=== PATIENT | male | born 1955 | race Caucasian/White ===

== ENCOUNTER 2018-01-06 22:40 | Emergency (ER) | payer OTHER ==
[~2018-01-06] VITALS: Ht 180.3 cm; Wt 83.9 kg
[~2018-01-06 22:40] MED LIST: DOCU-416 PO; DOXA8TAB62 PO; HYDR-317; METO50TA19 PO; OXYB10TA21 PO; PHEN200T32 PO
--- NOTE | 2018-01-06 23:08 | ER Report ---
History and Physical Time Seen By MD: 23:06 Hx. of Stated Complaint: PATIENT STATES HIS BLOOD PRESSURE IS REALLY ELEVATED 220/120 AT HOME, TOOK MANUAL BP. PATIENT ALSO STATES HE HAS HAD AN IRREGULAR HEART BEAT, AND HAD A HEADACHE ON THE POSTERIOR RIGHT SIDE, BUT THAT WENT AWAY. PATIENT TOOK 10MG OF PROPRANOLOL PER HIS DOCTORS ORDER AT 2150. HPI/ROS CHIEF COMPLAINT: elevated blood pressure and funky heartbeats HISTORY OF PRESENT ILLNESS: This is a 62 year old male. He has a long history of blood pressure problems. Multiple medications with limited effectiveness to control pressures. He had a headache tonight and blood pressure was running high. Did take a Propranolol 10mg tablet at home and headache is gone, but blood pressure is still high and pulse racing. He did have an episode of irregular heart beat in the past and fast beats. Occasionally gets very strong skipped beats. 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 He has no chest pain at this time. He is not short of breath. No nausea or vomiting. REVIEW OF SYSTEMS: Constitutional: No fever or chills. Eyes: No vision changes. ENT: No sore throat. No congestion. Cardiovascular: As above. Respiratory: As above. Gastrointestinal: No abdominal pain. Genitourinary: No problems with urination. Musculoskeletal: No musculoskeletal pain. Skin: No rashes or lesions. Neurological: As above. Allergies: Coded Allergies: clavulanic acid (Unverified Adverse Reaction, Severe, GI DISTRESS, SEVERE N/V, 01/06/18) nifedipine (Unverified Adverse Reaction, Intermediate, IRREGULAR HEARTBEAT , HEADACHE, 01/06/18) Home Meds Active Scripts Diltiazem Hcl (CARDIZEM CD) 180 Mg Cap.er.24h, 180 MG PO QDAY, #30 CAP.SR.24H 0 Refills Prov:GWENDOLYN JIMENEZ MD 01/07/18 Reported Medications Hydrocodone/Acetaminophen (Lortab 5-325 mg Tablet) 1 Each Tablet, 1-2 Q6H 06/06/14 Oxybutynin Chloride (DITROPAN XL) 10 Mg Tab.er.24, 10 MG PO QDAY, TAB 06/06/14 Phenazopyridine Hcl (PHENAZOPYRIDINE HCL) 200 Mg Tablet, 200 MG PO TID 06/06/14 Docusate Sodium (COLACE) 100 Mg Capsule, 100 MG PO BID, CAPSULE 06/06/14 Doxazosin Mesylate (CARDURA) 8 Mg Tablet, 8 MG PO QDAY 05/31/14 Metoprolol Succinate (METOPROLOL SUCCINATE) 50 Mg Tab.er.24h, 0.5 TAB PO TID TAKE ONE TABLET BY MOUTH EVERY DAY 05/31/14 Reviewed Nurses Notes: Yes Constitutional Vital Sign - Last 24 Hours 01/06/18 01/06/18 01/06/18 01/06/18 22:47 22:48 22:55 23:10 Temp 97.9 Pulse 104 91 96 Resp 20 B/P (MAP) 198/145 (162) 198/145 Pulse Ox 91 93 91 O2 Delivery Room Air 01/06/18 01/06/18 01/06/18 01/06/18 23:25 23:36 23:40 23:45 Pulse 88 84 Resp 21 B/P (MAP) 163/121 (135) 153/100 (117) Pulse Ox 91 91 01/06/18 01/07/18 01/07/18 01/07/18 23:55 00:08 00:10 00:15 Pulse 68 67 Resp 28 19 B/P (MAP) 158/104 (122) 154/107 (123) Pulse Ox 92 90 01/07/18 01/07/18 01/07/18 01/07/18 00:25 00:30 00:35 00:45 Pulse 65 64 Resp 14 18 B/P (MAP) 161/107 (125) 162/107 (125) Pulse Ox 92 91 01/07/18 00:50 Pulse 66 Resp 11 Pulse Ox 94 Physical Exam General Appearance: The patient is alert. No acute distress. Eyes: Pupils are equal, round. Reactive to light. No pallor, injection or icterus. Extraocular movements are intact. ENT: Mucous membranes are moist. Normal oral mucosa. Posterior oropharynx is normal. Normal tympanic membranes and canals. Neck: Supple and non tender. No lymphadenopathy. Respiratory: Breathing easily and unlabored. Lungs are clear to auscultation. Cardiovascular: Tachycardia with irregularly irregular. No murmurs, gallops or rubs. Normal capillary refill. No edema. Gastrointestinal: Abdomen is soft and non tender. Nondistended. Normal active bowel sounds. Neurological: Alert and oriented x3. Cranial nerves II through XII show no acute deficits on my exam. No focal neurologic deficits in the extremities. Skin: Warm and dry. No rashes. Musculoskeletal: Nontender. Full range of motion. DIFFERENTIAL DIAGNOSIS: After history and physical exam, differential diagnosis was considered for atrial fibrillation with rapid rate. Medical Decision Making Data Points Result Diagram: 01/06/18225401/06/185 Laboratory Hematology Test 01/06/18 22:55 Red Blood Count 5.63 M/uL (4.00-5.60) Mean Corpuscular Volume 88.6 fL (80.0-96.0) Mean Corpuscular Hemoglobin 30.8 pg (26.0-33.0) Mean Corpuscular Hemoglobin Concent 34.8 g/dL (32.0-36.0) Red Cell Distribution Width 13.4 % (11.5-14.5) Mean Platelet Volume 9.6 fL (7.2-11.1) Neutrophils (%) (Auto) 43.6 % (39.4-72.5) Lymphocytes (%) (Auto) 40.4 % (17.6-49.6) Monocytes (%) (Auto) 12.2 % (4.1-12.4) Eosinophils (%) (Auto) 3.0 % (0.4-6.7) Basophils (%) (Auto) 0.8 % (0.3-1.4) Nucleated RBC Relative Count (auto) 0.0 /100WBC Neutrophils # (Auto) 4.1 K/uL (2.0-7.4) Lymphocytes # (Auto) 3.8 K/uL (1.3-3.6) Monocytes # (Auto) 1.1 K/uL (0.3-1.0) Eosinophils # (Auto) 0.3 K/uL (0.0-0.5) Basophils # (Auto) 0.1 K/uL (0.0-0.1) Nucleated RBC Absolute Count (auto) 0.00 K/uL D-Dimer Quantitative (PE/DVT) 0.38 ug/ml (0-0.50) Sodium Level 140 mmol/L (137-145) Potassium Level 3.7 mmol/L (3.5-5.0) Chloride Level 103 mmol/L (98-107) Carbon Dioxide Level 21 mmol/L (22-30) Blood Urea Nitrogen 25 mg/dl (9-21) Creatinine 1.30 mg/dl (0.66-1.25) Glomerular Filtration Rate Calc 55.6 Random Glucose 111 mg/dl (75-110) Calcium Level 10.0 mg/dl (8.4-10.2) Total Bilirubin 0.3 mg/dl (0.2-1.3) Aspartate Amino Transf (AST/SGOT) 34 U/L (0-35) Alanine Aminotransferase (ALT/SGPT) 38 U/L (0-56) Alkaline Phosphatase 115 U/L (0-126) Troponin I 0.021 ng/ml Total Protein 8.5 gm/dl (6.3-8.2) Albumin 4.4 g/dl (3.5-5.0) Chemistry Test 01/06/18 22:55 White Blood Count 9.3 k/uL (4.5-11.0) Red Blood Count 5.63 M/uL (4.00-5.60) Hemoglobin 17.3 g/dL (14.0-18.0) Hematocrit 49.9 % (42.0-52.0) Mean Corpuscular Volume 88.6 fL (80.0-96.0) Mean Corpuscular Hemoglobin 30.8 pg (26.0-33.0) Mean Corpuscular Hemoglobin Concent 34.8 g/dL (32.0-36.0) Red Cell Distribution Width 13.4 % (11.5-14.5) Platelet Count 232 K/uL (150-450) Mean Platelet Volume 9.6 fL (7.2-11.1) Neutrophils (%) (Auto) 43.6 % (39.4-72.5) Lymphocytes (%) (Auto) 40.4 % (17.6-49.6) Monocytes (%) (Auto) 12.2 % (4.1-12.4) Eosinophils (%) (Auto) 3.0 % (0.4-6.7) Basophils (%) (Auto) 0.8 % (0.3-1.4) Nucleated RBC Relative Count (auto) 0.0 /100WBC Neutrophils # (Auto) 4.1 K/uL (2.0-7.4) Lymphocytes # (Auto) 3.8 K/uL (1.3-3.6) Monocytes # (Auto) 1.1 K/uL (0.3-1.0) Eosinophils # (Auto) 0.3 K/uL (0.0-0.5) Basophils # (Auto) 0.1 K/uL (0.0-0.1) Nucleated RBC Absolute Count (auto) 0.00 K/uL D-Dimer Quantitative (PE/DVT) 0.38 ug/ml (0-0.50) Glomerular Filtration Rate Calc 55.6 Calcium Level 10.0 mg/dl (8.4-10.2) Total Bilirubin 0.3 mg/dl (0.2-1.3) Aspartate Amino Transf (AST/SGOT) 34 U/L (0-35) Alanine Aminotransferase (ALT/SGPT) 38 U/L (0-56) Alkaline Phosphatase 115 U/L (0-126) Troponin I 0.021 ng/ml Total Protein 8.5 gm/dl (6.3-8.2) Albumin 4.4 g/dl (3.5-5.0) Coagulation Test 01/06/18 22:55 D-Dimer Quantitative (PE/DVT) 0.38 ug/ml EKG/Imaging EKG Interpretation 12 lead EKG: At 22:55 hours Rhythm: Atrial fibrillation with rapid ventricular response, rate 118 [place]: normal QRS: Criteria for LVH ST segments: Nonspecific ST and T-wave changes but no signs of ischemia 12 lead EKG: At 23:49 hours after receiving IV diltiazem Rhythm: normal sinus rhythm, rate 63 [place]: normal QRS: normal ST segments: Nonspecific T-wave abnormality Imaging CHEST PA AND LATERAL 01/06/2018 11:31 PM. INDICATION: Irregular heartbeat. COMPARISON: 11/30/2012. FINDINGS: Lungs are well-expanded. The lungs are clear. No pneumothorax or pleural effusion. Pulmonary vasculature is unremarkable. Heart size is normal. IMPRESSION: No acute abnormality or significant change. Report Dictated By: Ravindra Fabian MD at 01/06/2018 11:41 PM ED Course/Re-evaluation Clinical Indication for ER IV: Hydration, IV Access ED Course Patient was given 20 mg of IV diltiazem, slow IV push, with immediate conversion to sinus rhythm. He remained in a sinus rhythm. We gave him Cardizem CD 180 mg oral dose. We'll have him start taking this once a day. He will follow up with primary care and with cardiology. We did discuss anticoagulation and I did recommend to him based on increased stroke risk that starting blood thinner would be the right thing to do however he would prefer not to do this at this time. He is agreeable to starting the aspirin daily, he expressed understanding of the increased risks of stroke based on a conversation regarding what atrial fibrillation is unwise increases stroke risk. Decision to Disposition Date: Jan 07, 2018 Decision to Disposition Time: 00:49 Depart Departure Latest Vital Signs Vital Signs Date Time Temp Pulse Resp B/P (MAP) Pulse Ox O2 Delivery O2 Flow Rate FiO2 01/07/18 00:50 66 11 94 01/07/18 00:45 162/107 (125) 01/06/18 22:48 97.9 Room Air Impression: Primary Impression: Atrial fibrillation Condition: Improved Disposition: HOME OR SELF-CARE Referrals: HEATHER FISHER DO (PCP) New Scripts Diltiazem Hcl (CARDIZEM CD) 180 Mg Cap.er.24h 180 MG PO QDAY, #30 CAP.SR.24H 0 Refills Prov: GWENDOLYN JIMENEZ MD 01/07/18 Patient Instructions: A-fib (Atrial Fibrillation) (ED) Additional Instructions: Start Cardizem CD 180mg capsule daily. No changes to other medications. It would be best to start on a blood thinner to reduce risk of stroke from from atrial fibrillation. As least start an aspirin daily if not starting a blood thinner, but this will not reduce stroke risk as well. Please discuss this with cardiology and with your primary care provider. Problem Qualifiers Primary Impression: Atrial fibrillation Atrial fibrillation type: unspecified Qualified Codes: I48.91 - Unspecified atrial fibrillation GWENDOLYN JIMENEZ MD Jan 06, 2018 23:08
--- NOTE | 2018-01-06 23:11 | EKG ---
FACILITY: [facility] - [place] PATIENT NAME: CLAY CHE : [id number] MR: [id number] V: [id number] EXAM DATE: ORDERING PHYSICIAN: GWENDOLYN JIMENEZ TECHNOLOGIST: CHRISTY Test Reason : ARRYTHMIA Blood Pressure : / mmHG Vent. Rate : 118 BPM Atrial Rate : 141 BPM P-R Int : 000 ms QRS Dur : 080 ms QT Int : 334 ms P-R-T Axes : 000 025 097 degrees QTc Int : 468 ms Atrial flutter with variable AV block Minimal voltage criteria for LVH, may be normal variant Nonspecific ST and T wave abnormality , probably digitalis effect Abnormal ECG When compared with ECG of 01-JUN-2014 09:40, Atrial flutter has replaced Sinus rhythm Vent. rate has increased BY [address] now depressed in Inferior leads ST now depressed in Anterolateral leads Nonspecific T wave abnormality, worse in Lateral leads Confirmed by ORLANDO NUÑEZ ([id number]) on 01/06/2018 11:26:07 PM Referred By: Confirmed By:ORLANDO NUÑEZ
[2018-01-06 23:20] LABS: PLATELET COUNT, AUTOMATED 232 K/uL (150-450)
[2018-01-06] MEDS ORDERED: DILTIAZEM 5 MG/ML 5ML IVPUSH IVP ONE (23:30)
--- NOTE | 2018-01-06 23:48 | RADIOLOGY IMAGING REPORT ---
FACILITY: [facility] PATIENT NAME: Steven Brito : 1955 MR: [id number] V: [id number] EXAM DATE: ORDERING PHYSICIAN: GWENDOLYN JIMENEZ TECHNOLOGIST: Location: [facility] [place] Patient: Steven Brito : 1955 Visit/Account:[id number] Date of Sevice: 01/06/2018 CHEST PA AND LATERAL 01/06/2018 11:31 PM. INDICATION: Irregular heartbeat. COMPARISON: 11/30/2012. FINDINGS: Lungs are well-expanded. The lungs are clear. No pneumothorax or pleural effusion. Pulmo nary vasculature is unremarkable. Heart size is normal. IMPRESSION: No acute abnormality or significant change. Report Dictated By: Ravindra Fabian MD at 01/06/2018 11:41 PM Report E-Signed By: Ravindra Fabian MD at 01/06/2018 11:43 PM WSN:[id number]
[2018-01-07] MEDS ORDERED: DILTIAZEM CD 180 MG CAPCR PO ONE (00:05)
[2018-01-07 00:45] VITALS: BP 162/107
[2018-01-07] MEDS ORDERED: DILT-145 PO (00:51)
--- NOTE | 2018-01-07 01:07 | EKG ---
FACILITY: [facility] - [place] PATIENT NAME: CLAY CHE : [id number] MR: [id number] V: [id number] EXAM DATE: ORDERING PHYSICIAN: GWENDOLYN JIMENEZ TECHNOLOGIST: CHRISTY Test Reason : S/P A FIB Blood Pressure : / mmHG Vent. Rate : 063 BPM Atrial Rate : 063 BPM P-R Int : 178 ms QRS Dur : 084 ms QT Int : 408 ms P-R-T Axes : 021 015 045 degrees QTc Int : 417 ms Normal sinus rhythm Nonspecific T wave abnormality Abnormal ECG When compared with ECG of 06-JAN-2018 22:55, Sinus rhythm has replaced Atrial flutter Vent. rate has decreased BY [address] no longer depressed in Inferior leads ST elevation has replaced ST depression in Anterior leads Confirmed by ORLANDO NUÑEZ ([id number]) on 01/07/2018 6:20:04 AM Referred By: Confirmed By:ORLANDO NUÑEZ
--- NOTE | 2018-01-09 15:46 | Transitional Care Management ---
Assessment Visit Type: Telephone Visit (01/09) TCM Discharge Criteria Transitional Care Comment: 01/09 visited with , D/T Steven was outside. states "Steven has had a KAPOOR for the past couple of days but denies any CP or palpations.: I encouraged her to have him call PCP and get an office YADY. She said she would try to convience him but he was dragging his feet. JESSICA BOWLING Jan 09, 2018 15:46
== END 2018-01-07 01:03 | disposition home or self-care (01) ==
LOC: ER 23:17
DX: I48.91 Unspecified atrial fibrillation (principal)
CPT/HCPCS: 71046; 84443; 84484; 85025; 85379; 93005; 96374; 99284; J3490; 82040; 82247; 82310; 82374; 82435; 82565; 82947; 84075; 84132; 84155; 84295; 84450; 84460; 84520

== ENCOUNTER 2019-05-09 06:30 | Emergency (ER) | payer OTHER ==
[~2019-05-09 06:30] MED LIST changes: -ACET-1966 PO; -AMLO-101 PO; -AMLO-125 PO; -AMLO2.5T75 PO; -ASPI81TA94 PO; -ATOR40TA24 PO; -CEFU500T10 PO; -COLC0.6C3 PO; -GABA-547 PO; -HYDR10TA20 PO; -LEVO50TA86 PO; -METO-253 PO; -NIT4 SL; -WARF5TAB23 PO
[2019-05-09] MEDS ORDERED: WARF5TAB23 PO (06:36)
[2019-05-09] MEDS ORDERED: ASPIRIN 81 MG CHEW ONE (06:37)
[2019-05-09] MEDS ORDERED: STEMI KIT(*) 0 EA ONE (06:38)
--- NOTE | 2019-05-09 06:42 | EKG ---
FACILITY: [facility] PATIENT NAME: CLAY CHE : [id number] MR: [id number] V: [id number] EXAM DATE: ORDERING PHYSICIAN: LANDY ESTEBAN TECHNOLOGIST: KATT Test Reason : ALOC Blood Pressure : / mmHG Vent. Rate : 042 BPM Atrial Rate : 042 BPM P-R Int : 184 ms QRS Dur : 092 ms QT Int : 464 ms P-R-T Axes : 025 032 086 degrees QTc Int : 387 ms Marked sinus bradycardia Left ventricular hypertrophy with repolarization abnormality ST elevation, consider inferolateral injury or acute infarct ACUTE NE Abnormal ECG No previous ECGs available Confirmed by ORLANDO NUÑEZ ([id number]) on 05/09/2019 9:46:02 AM Referred By: CARLITO Confirmed By:ORLANDO NUÑEZ
[2019-05-09] MEDS ORDERED: ASPIRIN 81 MG CHEW PO ONE (06:45)
[2019-05-09] MEDS ORDERED: NS(*) 0.9% 1000 ML BAG 1,000 ML IV ONE (06:50)
[2019-05-09] MEDS ORDERED: TENECTEPLASE 50 MG KIT IVP ONE (06:50)
[2019-05-09] MEDS ORDERED: CLOPIDOGREL BISULFATE 75MG TAB PO ONE (06:50)
[2019-05-09 06:52] LABS: PLATELET COUNT, AUTOMATED 260 K/uL (150-450)
--- NOTE | 2019-05-09 07:01 | ER Report ---
History and Physical Time Seen By MD: 06:28 Hx. of Stated Complaint: WAS EXERCISING AROUND 6A. NOW HAS CHEST PAIN, PALE, SWEATY, ALTERED HPI/ROS CHIEF COMPLAINT: Chest pain HISTORY OF PRESENT ILLNESS: Patient was exercising at 6:00. He developed central chest pain and pressure. He has never had this before. Symptoms continue. He has 3 out of 10 chest pain with radiation to both shoulders. It does not radiate to his back. He is not short of breath. Patient is also lightheaded. He has had no prior heart attack. He is on Coumadin for A. fib and his last INR was 2.0. He has had no bleeding. He denies black stools. He has never been anemic. + fam hx, no known personal acs, no tobacco use REVIEW OF SYSTEMS: Constitutional: No fever, no chills. Eyes: No discharge. ENT: No sore throat. Cardiovascular: above Respiratory: above Gastrointestinal: No abdominal pain, no vomiting. Genitourinary: No hematuria. Musculoskeletal: No back pain. Skin: No rashes. Neurological: lightheaded Remainder of the 14 system rev: Yes Allergies: Coded Allergies: clavulanic acid (Unverified Adverse Reaction, Severe, GI DISTRESS, SEVERE N/V, 05/09/19) nifedipine (Unverified Adverse Reaction, Intermediate, IRREGULAR HEARTBEAT, HEADACHE, 05/09/19) Home Meds Reported Medications Hydralazine Hcl (HYDRALAZINE HCL) 10 Mg Tablet, 10 MG PO QDAY, TAB 05/09/19 Amlodipine Besylate (NORVASC) 5 Mg Tablet, 1 TAB PO QDAY, TAB 05/09/19 Amlodipine Besylate (NORVASC) 2.5 Mg Tablet, 1 TAB PO QDAY, TAB 05/09/19 Warfarin Sodium (WARFARIN SODIUM) 5 Mg Tablet, 5 MG PO QDAY, TAB 05/09/19 Discontinued Reported Medications Hydrocodone/Acetaminophen (Lortab 5-325 mg Tablet) 1 Each Tablet, 1-2 Q6H 06/06/14 Oxybutynin Chloride (DITROPAN XL) 10 Mg Tab.er.24, 10 MG PO QDAY, TAB 06/06/14 Phenazopyridine Hcl (PHENAZOPYRIDINE HCL) 200 Mg Tablet, 200 MG PO TID 06/06/14 Docusate Sodium (COLACE) 100 Mg Capsule, 100 MG PO BID, CAPSULE 06/06/14 Doxazosin Mesylate (CARDURA) 8 Mg Tablet, 8 MG PO QDAY 05/31/14 Metoprolol Succinate (METOPROLOL SUCCINATE) 50 Mg Tab.er.24h, 0.5 TAB PO TID TAKE ONE TABLET BY MOUTH EVERY DAY 05/31/14 Discontinued Scripts Diltiazem Hcl (CARDIZEM CD) 180 Mg Cap.er.24h, 180 MG PO QDAY, #30 CAP.SR.24H 0 Refills Prov:GWENDOLYN JIMENEZ MD 01/07/18 Reviewed Nurses Notes: Yes Old Medical Records Reviewed: Yes Constitutional Vital Sign - Last 24 Hours 05/09/19 05/09/19 05/09/19 05/09/19 06:31 06:33 06:35 06:40 Temp 96.4 Pulse 47 54 Resp 18 23 19 B/P (MAP) 113/66 (82) 113/66 131/83 (99) Pulse Ox 95 94 91 O2 Delivery Room Air 05/09/19 05/09/19 05/09/19 05/09/19 06:42 06:45 06:50 06:52 Pulse ??? 53 Resp 28 19 B/P (MAP) 136/85 (102) 142/64 (90) 137/83 (101) O2 Flow Rate 2.0 05/09/19 05/09/19 05/09/19 05/09/19 06:57 07:00 07:02 07:03 Pulse 52 54 Resp 14 13 B/P (MAP) 148/90 (109) 146/96 (113) 149/98 (115) Pulse Ox 99 99 05/09/19 05/09/19 07:07 07:12 Pulse 60 44 Resp 17 Pulse Ox 100 99 Physical Exam General Appearance: The patient is alert, has no immediate need for airway protection and no signs of toxicity. he appears pale and diaphoretic Eyes: Pupils equal and round no pallor or injection. ENT, Mouth: Mucous membranes are moist. Respiratory: There are no retractions, lungs are clear to auscultation. Cardiovascular: bradycardia Gastrointestinal: Abdomen is soft and non tender, no masses, bowel sounds normal. GI - brown stool. No blood. Neurological: alert, oriented Skin: diaphoretic forehead, cool Musculoskeletal: Neck is supple non tender. Extremities are nontender, nonswollen and have full range of motion. DIFFERENTIAL DIAGNOSIS: After history and physical exam differential diagnosis was considered for chest pain including but not limited to myocardial ischemia, aortic dissection pericarditis pulmonary embolus, chest wall pain, pleural inflammation and pulmonary infectious causes. Medical Decision Making Data Points Result Diagram: 05/09/1939 05/09/1939 Laboratory Hematology Test 05/09/19 06:39 Red Blood Count 4.76 M/uL (4.00-5.60) Mean Corpuscular Volume 88.9 fL (80.0-96.0) Mean Corpuscular Hemoglobin 31.3 pg (26.0-33.0) Mean Corpuscular Hemoglobin Concent 35.1 g/dL (32.0-36.0) Red Cell Distribution Width 14.1 % (11.5-14.5) Mean Platelet Volume 9.1 fL (7.2-11.1) Neutrophils (%) (Auto) 41.2 % (39.4-72.5) Lymphocytes (%) (Auto) 42.6 % (17.6-49.6) Monocytes (%) (Auto) 12.5 % (4.1-12.4) Eosinophils (%) (Auto) 2.8 % (0.4-6.7) Basophils (%) (Auto) 0.9 % (0.3-1.4) Nucleated RBC Relative Count (auto) 0.0 /100WBC Neutrophils # (Auto) 3.2 K/uL (2.0-7.4) Lymphocytes # (Auto) 3.3 K/uL (1.3-3.6) Monocytes # (Auto) 1.0 K/uL (0.3-1.0) Eosinophils # (Auto) 0.2 K/uL (0.0-0.5) Basophils # (Auto) 0.1 K/uL (0.0-0.1) Nucleated RBC Absolute Count (auto) 0.00 K/uL Sodium Level 140 mmol/L (137-145) Potassium Level 3.6 mmol/L (3.5-5.0) Chloride Level 107 mmol/L (98-107) Carbon Dioxide Level 21 mmol/L (22-30) Blood Urea Nitrogen 20 mg/dl (9-21) Creatinine 1.40 mg/dl (0.66-1.25) Glomerular Filtration Rate Calc 50.7 Random Glucose 141 mg/dl (75-110) Calcium Level 9.9 mg/dl (8.4-10.2) Total Bilirubin 0.3 mg/dl (0.2-1.3) Aspartate Amino Transf (AST/SGOT) 26 U/L (0-35) Alanine Aminotransferase (ALT/SGPT) 38 U/L (0-56) Alkaline Phosphatase 81 U/L (0-126) Troponin I < 0.012 ng/ml B-Type Natriuretic Peptide 9 pg/ml (0-100) Total Protein 7.0 g/dl (6.3-8.2) Albumin 3.9 g/dl (3.5-5.0) Lipase 177 U/L (23-300) Chemistry Test 05/09/19 06:39 White Blood Count 7.8 k/uL (4.5-11.0) Red Blood Count 4.76 M/uL (4.00-5.60) Hemoglobin 14.9 g/dL (14.0-18.0) Hematocrit 42.3 % (42.0-52.0) Mean Corpuscular Volume 88.9 fL (80.0-96.0) Mean Corpuscular Hemoglobin 31.3 pg (26.0-33.0) Mean Corpuscular Hemoglobin Concent 35.1 g/dL (32.0-36.0) Red Cell Distribution Width 14.1 % (11.5-14.5) Platelet Count 260 K/uL (150-450) Mean Platelet Volume 9.1 fL (7.2-11.1) Neutrophils (%) (Auto) 41.2 % (39.4-72.5) Lymphocytes (%) (Auto) 42.6 % (17.6-49.6) Monocytes (%) (Auto) 12.5 % (4.1-12.4) Eosinophils (%) (Auto) 2.8 % (0.4-6.7) Basophils (%) (Auto) 0.9 % (0.3-1.4) Nucleated RBC Relative Count (auto) 0.0 /100WBC Neutrophils # (Auto) 3.2 K/uL (2.0-7.4) Lymphocytes # (Auto) 3.3 K/uL (1.3-3.6) Monocytes # (Auto) 1.0 K/uL (0.3-1.0) Eosinophils # (Auto) 0.2 K/uL (0.0-0.5) Basophils # (Auto) 0.1 K/uL (0.0-0.1) Nucleated RBC Absolute Count (auto) 0.00 K/uL Glomerular Filtration Rate Calc 50.7 Calcium Level 9.9 mg/dl (8.4-10.2) Total Bilirubin 0.3 mg/dl (0.2-1.3) Aspartate Amino Transf (AST/SGOT) 26 U/L (0-35) Alanine Aminotransferase (ALT/SGPT) 38 U/L (0-56) Alkaline Phosphatase 81 U/L (0-126) Troponin I < 0.012 ng/ml B-Type Natriuretic Peptide 9 pg/ml (0-100) Total Protein 7.0 g/dl (6.3-8.2) Albumin 3.9 g/dl (3.5-5.0) Lipase 177 U/L (23-300) EKG/Imaging EKG Interpretation 12 lead EKG: Rhythm: sinus bradycardia - rate 42 [place]: normal QRS: normal ST segments: st elevations ii, iii, avf; v1-3 depressions STEMI Monitor Interpretation: Sinus Bradycardia ED Course/Re-evaluation ED Course Pt presents with sgs/symptoms of STEMI. No e/o aortic dissection. On coumadin though no hx bleed/anemia. I c/s cardiology at [facility] given relative c/i for TNK ase with coumadin; given ongoing symtpoms, radio station audio engineer recommended tnkase and plavix. I administered above. Rpt ekg at 15 min without sig change. 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 Withheld heparin given coumadin. Pt took 1 asa this am; 3 admin in ED. Decision to Disposition Date: May 09, 2019 Decision to Disposition Time: 07:15 Critical Care Time I spent a total of 45 minutes of critical care time in obtaining history, performing a physical exam, bedside monitoring of interventions, collecting and interpreting tests and discussion with consultants but not including time spent performing procedures. Depart Departure Latest Vital Signs Vital Signs Date Time Temp Pulse Resp B/P (MAP) Pulse Ox O2 Delivery O2 Flow Rate FiO2 05/09/19 07:12 44 99 6/26/19 07:07 17 05/09/19 07:03 149/98 (115) 05/09/19 06:42 2.0 05/09/19 06:33 96.4 Room Air Impression: Primary Impression: STEMI (ST elevation myocardial infarction) Condition: Improved Disposition: XFER TO ACUTE CARE HOSPITAL ([facility]/ICU) Referrals: HEATHER FISHER DO (PCP) Problem Qualifiers Primary Impression: STEMI (ST elevation myocardial infarction) Involved coronary artery: unspecified coronary artery Qualified Codes: I21.3 - ST elevation (STEMI) myocardial infarction of unspecified site LANDY ESTEBAN MD May 09, 2019 07:01
--- NOTE | 2019-05-09 07:01 | RADIOLOGY IMAGING REPORT ---
FACILITY: [facility] PATIENT NAME: Steven Brito : 1955 MR: [id number] V: [id number] EXAM DATE: ORDERING PHYSICIAN: LANDY ESTEBAN TECHNOLOGIST: Location: [facility] [place] Patient: Steven Brito : 1955 Visit/Account:[id number] Date of Sevice: 05/09/2019 AP CHEST 05/09/2019 6:33 AM. INDICATION: Chest pain. COMPARISON: 01/06/2018. FINDINGS: Lungs are well-expanded. There is no consolidation. No pleural effusion or pneumothorax. Upper limit normal size heart. IMPRESSION: No acute abnormality. Report Dictated By: Ravindra Fabian MD at 05/09/2019 6:53 AM Report E-Signed By: Ravindra Fabian MD at 05/09/2019 6:54 AM WSN:[id number]
[2019-05-09 07:03] VITALS: BP 149/98
[2019-05-09] MEDS ORDERED: HYDR10TA20 PO (07:03)
[2019-05-09] MEDS ORDERED: AMLO-101 PO (07:03)
[2019-05-09] MEDS ORDERED: AMLO2.5T75 PO (07:03)
--- NOTE | 2019-05-09 07:09 | EKG ---
FACILITY: [facility] PATIENT NAME: CLAY CHE : [id number] MR: [id number] V: [id number] EXAM DATE: ORDERING PHYSICIAN: LANDY ESTEBAN TECHNOLOGIST: KATT Test Reason : AK Blood Pressure : / mmHG Vent. Rate : 053 BPM Atrial Rate : 053 BPM P-R Int : 170 ms QRS Dur : 094 ms QT Int : 454 ms P-R-T Axes : 015 019 084 degrees QTc Int : 426 ms Sinus bradycardia Left ventricular hypertrophy with repolarization abnormality Abnormal ECG When compared with ECG of 09-MAY-2019 06:30, No significant change was found Confirmed by ORLANDO NUÑEZ ([id number]) on 05/09/2019 9:46:06 AM Referred By: CARLITO Confirmed By:ORLANDO NUÑEZ
== END 2019-05-09 07:29 | disposition short-term general hospital (02) ==
LOC: ER 06:38
DX: I21.3 ST elevation (STEMI) myocardial infarction of unspecified site (principal)
CPT/HCPCS: 71045; 83690; 83880; 84484; 85025; 93005; 96374; J3101; J7030; 82040; 82247; 82310; 82374; 82435; 82565; 82947; 84075; 84132; 84155; 84295; 84450; 84460; 84520; 99291

== ENCOUNTER → 2019-05-09 | Outpatient (REF) | payer MEDICARE ==
[~2019-05-09] MED LIST changes: +ACET-1966 PO; +AMLO-101 PO; +AMLO-125 PO; +AMLO2.5T75 PO; +ASPI81TA94 PO; +ATOR40TA24 PO; +CEFU500T10 PO; +COLC0.6C3 PO; +DILT-145 PO; +GABA-547 PO; +HYDR10TA20 PO; +LEVO50TA86 PO; +METO-253 PO; +NIT4 SL; +WARF5TAB23 PO
== END ==
LOC: AMB 07:03
PROVIDERS: ATTEND Nurse Practitioner
DX: Z02.9 Encounter for administrative examinations, unspecified (principal)
CPT/HCPCS: A0425; A0428

== ENCOUNTER 2019-05-21 21:32 | Emergency (ER) | payer OTHER ==
[~2019-05-21 21:32] MED LIST changes: +AMLO-101 PO; +AMLO2.5T75 PO; +HYDR10TA20 PO; +WARF5TAB23 PO
--- NOTE | 2019-05-21 21:38 | ER Report ---
History and Physical Time Seen By MD: 21:36 HPI/ROS CHIEF COMPLAINT: Urinary burning HISTORY OF PRESENT ILLNESS: 64-year-old male presents ambulatory to the ER with burning urination since yesterday. Patient's history is significant for having a STEMI receiving TPA and Plavix. Patient was on Coumadin for atrial fibrillation. His INR was 2.0. He was flown over to [facility]. 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 Patient now has urinary burning, likely secondary to catheterization for surgery. Patient denies fever or chills. Patient notes nausea but no vomiting. Patient has a red rash on his chest around the adhesive from his midline incision. I suspect he is allergic to the tape adhesive. REVIEW OF SYSTEMS: Respiratory: No cough, no dyspnea. Cardiovascular: No chest pain, no palpitations. Gastrointestinal: No vomiting, no abdominal pain. Musculoskeletal: No back pain. Allergies: Coded Allergies: clavulanic acid (Unverified Adverse Reaction, Severe, GI DISTRESS, SEVERE N/V, 05/21/19) nifedipine (Unverified Adverse Reaction, Intermediate, IRREGULAR HEARTBEAT, HEADACHE, 05/21/19) Home Meds Active Scripts Cefuroxime Axetil (CEFUROXIME) 500 Mg Tablet, 500 MG PO BID for infection, #20 TAB Prov:BRYANYOSELIN Ontiveros DO 05/21/19 Reported Medications Levothyroxine Sodium (LEVOTHYROXINE SODIUM) 50 Mcg Tablet, 25 MCG PO QDAY, TAB 05/21/19 Levothyroxine Sodium (LEVOTHYROXINE SODIUM) 50 Mcg Tablet, 50 MCG PO tuesday, TAB 05/21/19 Nitroglycerin (NITROSTAT) 0.4 Mg Subl, 0.4 MG SL Q5MIN 05/21/19 Metoprolol Tartrate (METOPROLOL TARTRATE) 50 Mg Tab, 1 TAB PO BID, TAB 05/21/19 Gabapentin (GABAPENTIN) 100 Mg Capsule, 100 MG PO TID, CAPSULE 05/21/19 Colchicine (Colchicine) 0.6 Mg Capsule, 1 TAB PO QDAY 05/21/19 Atorvastatin Calcium (LIPITOR) 40 Mg Tablet, 1 TAB PO QHS, TAB 05/21/19 Acetaminophen (TYLENOL) 325 Mg Tablet, 1000 MG PO Q8H, TAB 05/21/19 Aspirin (ASPIRIN) 81 Mg Tab.chew, 81 MG PO QDAY, TAB.CHEW 05/21/19 Warfarin Sodium (WARFARIN SODIUM) 5 Mg Tablet, 2.5 MG PO tuesday, TAB 05/21/19 Amlodipine Besylate (AMLODIPINE BESYLATE) 5 Mg Tablet, 1 TAB PO QDAY, TAB 05/21/19 Warfarin Sodium (WARFARIN SODIUM) 5 Mg Tablet, 5 MG PO QDAY, TAB 05/09/19 Discontinued Reported Medications Hydralazine Hcl (HYDRALAZINE HCL) 10 Mg Tablet, 10 MG PO QDAY, TAB 05/09/19 Amlodipine Besylate (NORVASC) 5 Mg Tablet, 1 TAB PO QDAY, TAB 05/09/19 Amlodipine Besylate (NORVASC) 2.5 Mg Tablet, 1 TAB PO QDAY, TAB 05/09/19 Past Medical/Surgical History Atrial fibrillation on warfarin Recent STEMI, status post CABG Reviewed Nurses Notes: Yes Old Medical Records Reviewed: Yes Constitutional Vital Sign - Last 24 Hours 05/21/19 05/21/19 05/21/19 05/21/19 21:32 21:35 21:38 22:00 Temp 99.3 Pulse ??? 74 Resp 16 B/P (MAP) 151/93 151/93 (112) 133/88 (103) Pulse Ox 91 O2 Delivery Room Air 05/21/19 05/21/19 05/21/19 05/21/19 22:02 22:31 22:32 22:44 Pulse 72 71 B/P (MAP) 151/84 (106) 131/81 (98) Pulse Ox 92 91 05/21/19 05/21/19 23:00 23:02 Pulse 69 B/P (MAP) 132/82 (99) Pulse Ox 90 Physical Exam Vital signs stable, temp 99.3 General Appearance: The patient is alert, has no immediate need for airway protection and no current signs of toxicity. Mild distress, alert and oriented HEENT: Pupils equal and round no injection. Oropharynx without redness or exudate Respiratory: Chest is non tender, lungs are clear to auscultation., There is a healing midline incision with bruising consistent with recent surgery was an intact dressing over the incision. There is bruising at the right clavicular area from a central line Cardiac: regular rate and rhythm Gastrointestinal: Abdomen is soft and non tender, no masses, bowel sounds normal. Musculoskeletal: Neck: Neck is supple and non tender. Extremities have full range of motion and are non tender. Skin: No rashes or lesions. DIFFERENTIAL DIAGNOSIS: After history and physical exam differential diagnosis was considered for urinary tract infection, prostatitis, urinary retention secondary to medication Medical Decision Making Data Points Laboratory Hematology Test 05/21/19 21:39 Urine Color Yellow Urine Clarity Cloudy Urine pH 6.0 pH (4.8-9.5) Urine Specific [place] 1.016 Urine Protein 100 mg/dL (NEGATIVE) Urine Glucose (UA) Negative mg/dL (NEGATIVE) Urine Ketones Negative mg/dL (NEGATIVE) Urine Blood Large (NEGATIVE) Urine Nitrite Negative (NEGATIVE) Urine Bilirubin Negative (NEGATIVE) Urine Urobilinogen Negative mg/dL (0.2-1.9) Urine Leukocyte Esterase Large (NEGATIVE) Urine RBC 188 /HPF (0-2/HPF) Urine WBC 527 /HPF (0-5/HPF) Urine WBC Clumps Many /HPF Urine Squamous Epithelial Cells None /LPF (</=FEW) Urine Bacteria Few /HPF (NONE-FEW) Urine Mucus Few /HPF (NONE-FEW) Urine Yeast (Budding) Many /HPF Chemistry Test 05/21/19 21:39 Urine Color Yellow Urine Clarity Cloudy Urine pH 6.0 pH (4.8-9.5) Urine Specific [place] 1.016 Urine Protein 100 mg/dL (NEGATIVE) Urine Glucose (UA) Negative mg/dL (NEGATIVE) Urine Ketones Negative mg/dL (NEGATIVE) Urine Blood Large (NEGATIVE) Urine Nitrite Negative (NEGATIVE) Urine Bilirubin Negative (NEGATIVE) Urine Urobilinogen Negative mg/dL (0.2-1.9) Urine Leukocyte Esterase Large (NEGATIVE) Urine RBC 188 /HPF (0-2/HPF) Urine WBC 527 /HPF (0-5/HPF) Urine WBC Clumps Many /HPF Urine Squamous Epithelial Cells None /LPF (</=FEW) Urine Bacteria Few /HPF (NONE-FEW) Urine Mucus Few /HPF (NONE-FEW) Urine Yeast (Budding) Many /HPF Urinalysis Test 05/21/19 21:39 Urine Color Yellow Urine Clarity Cloudy Urine pH 6.0 pH (4.8-9.5) Urine Specific [place] 1.016 Urine Protein 100 mg/dL (NEGATIVE) Urine Glucose (UA) Negative mg/dL (NEGATIVE) Urine Ketones Negative mg/dL (NEGATIVE) Urine Blood Large (NEGATIVE) Urine Nitrite Negative (NEGATIVE) Urine Bilirubin Negative (NEGATIVE) Urine Urobilinogen Negative mg/dL (0.2-1.9) Urine Leukocyte Esterase Large (NEGATIVE) Urine RBC 188 /HPF (0-2/HPF) Urine WBC 527 /HPF (0-5/HPF) Urine WBC Clumps Many /HPF Urine Squamous Epithelial Cells None /LPF (</=FEW) Urine Bacteria Few /HPF (NONE-FEW) Urine Mucus Few /HPF (NONE-FEW) Urine Yeast (Budding) Many /HPF ED Course/Re-evaluation ED Course Patient was minute to an examination room. H&P was done. The dental diagnoses was considered. Patient with approximately 24 hours of urinary burning. Patient had a Hoyt catheter inserted during his surgery. Patient had complications after receiving TPA. He had hematuria and gross blood per penis. Urology was consulted. Patient underwent cystoscopy. He had no lesions. Patient had a bladder scan performed here with no evidence of urinary retention requiring catheter. Patient's discharged home on Ceftin antibiotic. Patient's urinalysis showed budding yeast. He was given 1 fluconazole 150 mg for treatment of yeast infection. Patient advised to follow-up with primary care if unimproved in 2 days for recheck and evaluation culture report. She is advised to take Pyridium. Patient advised to increase his fluid intake to flush out the infection. Decision to Disposition Date: May 21, 2019 Decision to Disposition Time: 22:22 Depart Departure Latest Vital Signs Vital Signs Date Time Temp Pulse Resp B/P (MAP) Pulse Ox O2 Delivery O2 Flow Rate FiO2 05/21/19 23:02 69 90 05/21/19 23:00 132/82 (99) 05/21/19 21:35 99.3 16 Room Air Impression: Primary Impression: Urinary tract infection Additional Impression: Status post aorto-coronary artery bypass graft Condition: Improved Disposition: HOME OR SELF-CARE Referrals: HEATHER FISHER DO (PCP) New Scripts Cefuroxime Axetil (CEFUROXIME) 500 Mg Tablet 500 MG PO BID for infection, #20 TAB Prov: YOSELIN ADAMS DO 05/21/19 Patient Instructions: Urinary Tract Infection in Men (ED) Additional Instructions: You can take by radium [id number] as Uristat or Azo-Standard 100 mg tablets 2 tablets 3 times a day as needed for urinary burning Follow-up with primary care if unimproved in 2-3 days Problem Qualifiers Primary Impression: Urinary tract infection Urinary tract infection type: acute cystitis Hematuria presence: with hematuria Qualified Codes: N30.01 - Acute cystitis with hematuria YOSELIN ADAMS DO May 21, 2019 21:38
[2019-05-21] MEDS ORDERED: NIT4 SL (21:48)
[2019-05-21] MEDS ORDERED: AMLO-125 PO (21:48)
[2019-05-21] MEDS ORDERED: LEVO50TA86 PO ×2 (21:48)
[2019-05-21] MEDS ORDERED: WARF5TAB23 PO (21:48)
[2019-05-21] MEDS ORDERED: ASPI81TA94 PO (21:48)
[2019-05-21] MEDS ORDERED: ATOR40TA24 PO (21:48)
[2019-05-21] MEDS ORDERED: GABA-547 PO (21:48)
[2019-05-21] MEDS ORDERED: METO-253 PO (21:48)
[2019-05-21] MEDS ORDERED: COLC0.6C3 PO (21:48)
[2019-05-21] MEDS ORDERED: ACET-1966 PO (21:48)
[2019-05-21] MEDS ORDERED: PHENAZOPYRIDINE 200 MG TAB PO ONE (22:15)
[2019-05-21] MEDS ORDERED: FLUCONAZOLE 150 MG TAB PO ONE (22:15)
[2019-05-21] MEDS ORDERED: CEFUROXIME AXETIL 250 MG TAB PO ONE (22:15)
[2019-05-21] MEDS ORDERED: CEFU500T10 PO (22:26)
[2019-05-21] MEDS ORDERED: PHENAZOPYRIDINE 200 MG TAB TH 2 TAB/BOTTLE PO ONE (22:30)
[2019-05-21 23:00] VITALS: BP 132/82
== END 2019-05-21 23:15 | disposition home or self-care (01) ==
LOC: ER 21:54
DX: N30.01 Acute cystitis with hematuria (principal); Z95.1 Presence of aortocoronary bypass graft
CPT/HCPCS: 81001; 87088; 87186; 99283

== ENCOUNTER → 2019-05-23 | Outpatient (REF) | payer OTHER ==
[~2019-05-23] MED LIST changes: +ACET-1966 PO; +AMLO-125 PO; +ASPI81TA94 PO; +ATOR40TA24 PO; +CEFU500T10 PO; +COLC0.6C3 PO; +GABA-547 PO; +LEVO50TA86 PO; +METO-253 PO; +NIT4 SL
== END ==
LOC: ZZSENDIN 09:52
PROVIDERS: ATTEND Thoracic Surgery (Cardiothoracic Vascular Surgery)
DX: R53.1 Weakness (principal); I48.91 Unspecified atrial fibrillation; I10 Essential (primary) hypertension
CPT/HCPCS: 85027

== ENCOUNTER → 2019-05-25 | Outpatient (REF) | payer OTHER | LOC: ZZSENDIN 15:14 | PROVIDERS: ATTEND Urology | DX: N39.0 Urinary tract infection, site not specified (principal); R30.0 Dysuria; B96.89 Other specified bacterial agents as the cause of diseases classified elsewhere | CPT/HCPCS: 81001; 87077; 87088; 87186 ==

== ENCOUNTER → 2019-05-29 | Outpatient (REF) | payer MEDICARE, OTHER | LOC: ZZSENDIN 18:01 | PROVIDERS: ATTEND Urology | DX: N39.0 Urinary tract infection, site not specified (principal) | CPT/HCPCS: 81001; 87088 ==

== ENCOUNTER → 2019-05-30 | Outpatient (REF) | payer MEDICARE, OTHER | LOC: ZZSENDIN 09:36 | PROVIDERS: ATTEND Thoracic Surgery (Cardiothoracic Vascular Surgery) | DX: I48.91 Unspecified atrial fibrillation (principal) | CPT/HCPCS: 85027 ==

== ENCOUNTER → 2019-06-20 | Outpatient (REF) | payer MEDICARE, OTHER ==
[~2019-06-20] MED LIST changes: +AMLO-127 PO; +CAR6.25 PO; +ROSU20TA24 PO
== END ==
LOC: ZZSENDIN 15:45
PROVIDERS: ATTEND Urology
DX: N39.0 Urinary tract infection, site not specified (principal); B96.89 Other specified bacterial agents as the cause of diseases classified elsewhere
CPT/HCPCS: 87077; 87088; 87186